=== PATIENT | female | born 2000 | race Caucasian/White ===

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

== ENCOUNTER 2022-07-04 20:28 | Emergency (ER) | payer BC ==
[~2022-07-04] VITALS: Ht 162.5 cm; Wt 90.7 kg
[2022-07-04] MEDS ORDERED: CIPR7.5D6 OT (20:59)
--- NOTE | 2022-07-04 20:59 | ED EENT ---
History of Present Illness General Chief Complaint: Ear Problems Stated Complaint: RIGHT EARACHE Nursing Triage Note: PT TO FT 2 WITH CC OF R EAR PAIN/ACHE THAT BEGAN 5 DAYS AGO. PT DENIES FEVER OR DRAINAGE. PT STATES TOOK 1000MG TYENOL 2HRS PRIOR TO ARRIVAL Source: patient Exam Limitations: no limitations (SENG GREGORY APRN) History of Present Illness Date Seen by Provider: Jul 04, 2022 Time Seen by Provider: 20:50 Initial Comments Patient is a 21-year-old female who presents to the emergency department with 5 days of right ear pain. She is currently . She took 1000 mg of Tylenol approximately 2 hours prior to arrival. She denies any fever, ear drainage, URI symptoms, swelling behind the ear, stiff neck. Denies any abdominal pain or vaginal bleeding/discharge. (SENG GREGORY APRN) Allergies and Home Medications Allergies Coded Allergies: No Known Drug Allergies (Unverified , 10/28/18) Patient Home Medication List Home Medication List Reviewed: Yes (SENG GREGORY APRN) Ciprofloxacin HCl/Dexameth (Ciproflox-Dexameth Otic Susp) 0.3 %-0.1 % Drops.susp, 4 DROPS OT BID Prescribed by: Seng Gregory on 07/04/222058 Review of Systems Review of Systems Constitutional: no symptoms reported Eyes: No Symptoms Reported Ears: See HPI, Pain Nose: no symptoms reported Mouth: no symptoms reported Throat: no symptoms reported Respiratory: no symptoms reported Cardiovascular: no symptoms reported Gastrointestinal: no symptoms reported Musculoskeletal: no symptoms reported Skin: no symptoms reported Neurological: No Symptoms Reported Hematologic/Lymphatic: No Symptoms Reported Immunological/Allergic: no symptoms reported (SENG GREGORY APRN) Past Gbopaoj-Idvbzx-Dynixs Hx Patient Social History Tobacco Use?: No Substance use?: No Alcohol Use?: No Pt feels they are or have been: No (SENG GREGORY APRN) Past Medical History Surgeries: Yes Adenoidectomy, Tonsillectomy Respiratory: No Cardiac: No Neurological: No Psychosocial: Yes Anxiety, Bipolar, Depression Integumentary: No (SENG GREGORY APRN) Physical Exam Vital Signs Vital Signs - First Documented 07/04/22 20:40 Temp 36.8 Pulse 93 Resp 18 B/P (MAP) 125/94 (104) Pulse Ox 97 O2 Delivery Room Air (ZHANE,LANDEN K DO) Height, Weight, BMI Height: 5'4.00" Weight: 155lbs. oz. 70.694468ef; 34.00 BMI Method:Stated General Appearance: WD/WN, no apparent distress Ears: right ear auricle normal, right ear TM normal, right ear swelling, right ear tenderness Neck: non-tender, full range of motion, supple, normal inspection (SENG GREGORY APRN) Progress/Results/Core Measures Results/Orders Vital Signs/I&O 07/04/22 07/04/22 20:40 21:03 Temp 36.8 Pulse 93 93 Resp 18 18 B/P (MAP) 125/94 (104) 125/94 Pulse Ox 97 97 O2 Delivery Room Air Room Air (LANDEN PHELAN DO) Blood Pressure Mean: 104 Progress Progress Note : Progress Note Patient is nontoxic and well-hydrated on exam. Otoscopy of the right ear is reassuring without any evidence of AOM. There is some mild swelling and erythema of the external canal. There is also provocation of pain with movement of the pinna of the ear as well as during the otoscopy itself. Likely represents some level of otitis externa. Will treat with Ciprodex. Literature states this is safe as there is very minimal systemic absorption. Vital signs are reassuring. No evidence of mastoiditis. Discussed importance of close follow-up with PCP. Return precautions for urgent symptomology discussed. Patient verbalized understanding. (SENG GREGORY APRN) Departure Impression Primary Impression: Right otitis externa Qualified Codes: H60.501 - Unspecified acute noninfective otitis externa, right ear Disposition: 01 HOME, SELF-CARE Condition: Stable Departure-Patient Inst. Decision time for Depature: 20:50 (SENG GREGORY APRN) Referrals: JUAN FOSTER DO (PCP/Family) Primary Care Physician Patient Instructions: Outer Ear Infection ED Scripts Ciprofloxacin HCl/Dexameth (Ciproflox-Dexameth Otic Susp) 0.3 %-0.1 % Drops.susp 4 DROPS OT BID for 7 Days, #7.5 ML Instill 4 drops into the right ear twice daily for 7 days Prov: SENG GREGORY APRN 07/04/22 ATTENDING PHYSICIAN NOTE: I WAS PHYSICALLY PRESENT ER PHYSICIAN, BUT I WAS NOT INVOLVED IN ANY DECISION MAKING OR ANY CARE OF THIS PATIENT, AND I AM NOT COLLABORATING PHYSICIAN. (LANDEN PHELAN DO) SENG GREGORY APRN Jul 04, 2022 20:59 LANDEN PHELAN DO Jul 05, 2022 01:39
[2022-07-04 21:03] VITALS: BP 125/94
== END 2022-07-04 21:03 | disposition home or self-care (01) ==
LOC: EDUNIT# 20:28 → ER 20:31
DX: O99.891 Other specified diseases and conditions complicating pregnancy (principal); H60.91 Unspecified otitis externa, right ear; Z28.311 Partially vaccinated for COVID-19; Z3A.00 Weeks of gestation of pregnancy not specified
CPT/HCPCS: 99282

== ENCOUNTER 2022-07-23 18:57 | Emergency (ER) | payer BC ==
[~2022-07-23] VITALS: Ht 162.6 cm; Wt 77.1 kg
[~2022-07-23 18:57] MED LIST changes: -CATHETER FLUSH 10 ML SYR IV PRN; +CIPR7.5D6 OT
[2022-07-23] MEDS ORDERED: PROCHLORPERAZINE 10 MG/2ML INJ (COMPAZINE) IV ONE (19:15)
[2022-07-23] MEDS ORDERED: LABETALOL 200 MG (NORMODYNE) TAB PO ONE (19:15)
[2022-07-23] MEDS ORDERED: ACETAMINOPHEN 500 MG TAB (TYLENOL) PO ONE (19:15)
[2022-07-23] MEDS ORDERED: diphenhydrAMINE 50 MG/ML INJ (BENADRYL) IVP ONE (19:15)
--- NOTE | 2022-07-23 19:19 | ED General ---
General Chief Complaint: (<6 weeks) Stated Complaint: HEADACHES, BLOOD PRESSURE ISSUES,POST PREECLAMPSIA Nursing Triage Note: PT AMB TO [facility] 6 W C/O HTN AND ARANDA. PT REPORTS SHE HAD A VAGINAL DELIVERY ON 07/11/22, INDUCED D/T HTN. PT REPORTS SHE CALLED [employer] [employer] AT [facility] WHO ADVISED PT TO COME TO ED FOR FURTHER EVALUATION AND TX. PT A&OX4. Source of Information: Patient Exam Limitations: No Limitations History of Present Illness Date Seen by Provider: Jul 23, 2022 Time Seen by Provider: 19:00 Initial Comments 21yoF that recently delivered a baby at 38 weeks 2 days roughly 12 days ago due to concerns for preeclampsia. She delivered via spontaneous vaginal delivery without complication. Has been doing well since then, vaginal bleeding has essentially stopped. Her and the baby have been doing well. Her blood pressure started to be elevated early on in , and to continue to monitor it, and later in , they noticed protein in her urine. When her pressure started elevating around 38 weeks they induced her for labor. She has never taken any blood pressure medicine. Blood pressures have been around 140/100 at home, she been taking ibuprofen 600 mg almost [id number] for headache. Denies any vision changes, abdominal pain, vaginal discharge that is unusual, dysuria, nausea, vomiting, diarrhea, fever, chills, weakness, numbness, rash, or any other concerns. She called her OB and they referred her to the ER to get lab work. She is otherwise denying any other acute complaints. Allergies and Home Medications Allergies Coded Allergies: Penicillins (Verified Allergy, Unknown, 07/23/22) Patient Home Medication List Home Medication List Reviewed: Yes Ciprofloxacin HCl/Dexameth (Ciproflox-Dexameth Otic Susp) 0.3 %-0.1 % Drops.susp, 4 DROPS OT BID Prescribed by: Seng Gregory on 07/04/222058 Review of Systems Review of Systems Constitutional: No fever EENTM: No blurred vision Respiratory: No cough Cardiovascular: No chest pain Gastrointestinal: No abdominal pain Genitourinary: no symptoms reported Musculoskeletal: no symptoms reported Skin: no symptoms reported Psychiatric/Neurological: Headache Hematologic/Lymphatic: No Symptoms Reported Immunological/Allergic: no symptoms reported All Other Systems Reviewed Negative Unless Noted: Yes Past Fqxislf-Zczbyw-Bhgdex Hx Patient Social History Tobacco Use?: No Use of E-Cig and/or Vaping dev: No Substance use?: No Alcohol Use?: No Immunizations Up To Date First/Initial COVID19 Vaccinat: 2020 Second COVID19 Vaccination Sam: 2020 Third COVID19 Vaccination Date: NONE COVID19 Vaccine Call Center Rn: MODERNA X2 Past Medical History Surgeries: Yes Adenoidectomy, Tonsillectomy Respiratory: No Cardiac: No Neurological: No Psychosocial: Yes Anxiety, Bipolar, Depression Integumentary: No Physical Exam Vital Signs Vital Signs - First Documented 07/23/22 19:03 Temp 36.5 Pulse 98 Resp 18 B/P (MAP) 141/100 (114) Pulse Ox 97 O2 Delivery Room Air Capillary Refill : Less Than 3 Seconds Height, Weight, BMI Height: 5'4.00" Weight: 155lbs. oz. 70.925681gq; 29.00 BMI Method:Stated General Appearance: No Apparent Distress, WD/WN Eyes: Bilateral Eye Normal Inspection, Bilateral Eye PERRL, Bilateral Eye EOMI HEENT: PERRL/EOMI, Normal ENT Inspection, Pharynx Normal Neck: Full Range of Motion, Normal Inspection, Non Tender, Supple Respiratory: Chest Non Tender, Lungs Clear, Normal Breath Sounds, No Accessory Muscle Use, No Respiratory Distress Cardiovascular: Regular Rate, Rhythm, No Edema, Normal Peripheral Pulses Gastrointestinal: Normal Bowel Sounds, Non Tender, Soft; No Distended, No Guarding Back: Normal Inspection, No CVA Tenderness Extremity: Normal Capillary Refill, Normal Inspection, Normal Range of Motion, Non Tender Neurologic/Psychiatric: Alert, Oriented x3, No Motor/Sensory Deficits, Normal Mood/Affect, Other (Normal gait) Skin: Normal Color, Warm/Dry Lymphatic: No Adenopathy Progress/Results/Core Measures Suspected Sepsis SIRS Temperature: Pulse: 98 Respiratory Rate: 18 Laboratory Tests 07/23/22 19:28: White Blood Count 11.4H Blood Pressure 141 /100 Mean: 114 Laboratory Tests 07/23/22 19:28: Creatinine 0.78, Platelet Count 521H Results/Orders Lab Results Laboratory Tests Test 07/23/22 19:21 07/23/22 19:28 Range/Units Urine Color YELLOW Urine Clarity CLEAR Urine pH 5.5 5-9 Urine Specific [place] 1.025 H 1.016-1.022 Urine Protein TRACE H NEGATIVE Urine Glucose (UA) NEGATIVE NEGATIVE Urine Ketones NEGATIVE NEGATIVE Urine Nitrite NEGATIVE NEGATIVE Urine Bilirubin NEGATIVE NEGATIVE Urine Urobilinogen 0.2 < = 1.0 MG/DL Urine Leukocyte Esterase 3+ H NEGATIVE Urine RBC (Auto) 3+ H NEGATIVE Urine RBC TNTC H /HPF Urine WBC 50-100 H /HPF Urine Squamous Epithelial Cells 2-5 /HPF Urine Crystals NONE /LPF Urine Bacteria FEW H /HPF Urine Casts NONE /LPF Urine Mucus SMALL H /LPF Urine Culture Indicated YES White Blood Count 11.4 H 4.3-11.0 10^3/uL Red Blood Count 4.21 3.80-5.11 10^6/uL Hemoglobin 11.4 L 11.5-16.0 g/dL Hematocrit 36 35-52 % Mean Corpuscular Volume 85 80-99 fL Mean Corpuscular Hemoglobin 27 25-34 pg Mean Corpuscular Hemoglobin Concent 32 32-36 g/dL Red Cell Distribution Width 14.6 H 10.0-14.5 % Platelet Count 521 H 130-400 10^3/uL Mean Platelet Volume 9.9 9.0-12.2 fL Immature Granulocyte % (Auto) 0 % Neutrophils (%) (Auto) 59 42-75 % Lymphocytes (%) (Auto) 31 12-44 % Monocytes (%) (Auto) 7 0-12 % Eosinophils (%) (Auto) 2 0-10 % Basophils (%) (Auto) 0 0-10 % Neutrophils # (Auto) 6.8 1.8-7.8 10^3/uL Lymphocytes # (Auto) 3.6 1.0-4.0 10^3/uL Monocytes # (Auto) 0.8 0.0-1.0 10^3/uL Eosinophils # (Auto) 0.2 0.0-0.3 10^3/uL Basophils # (Auto) 0.0 0.0-0.1 10^3/uL Immature Granulocyte # (Auto) 0.0 0.0-0.1 10^3/uL Sodium Level 141 135-145 MMOL/L Potassium Level 3.9 3.6-5.0 MMOL/L Chloride Level 113 H 98-107 MMOL/L Carbon Dioxide Level 18 L 21-32 MMOL/L Anion Gap 10 5-14 MMOL/L Blood Urea Nitrogen 14 7-18 MG/DL Creatinine 0.78 0.60-1.30 MG/DL Estimat Glomerular Filtration Rate 111 BUN/Creatinine Ratio 18 Glucose Level 86 70-105 MG/DL Uric Acid 4.6 2.6-7.2 MG/DL Calcium Level 9.4 8.5-10.1 MG/DL Corrected Calcium 9.6 8.5-10.1 MG/DL Magnesium Level 2.1 1.6-2.4 MG/DL Aspartate Amino Transf (AST/SGOT) 24 5-34 U/L Alanine Aminotransferase (ALT/SGPT) 29 0-55 U/L Alkaline Phosphatase 119 40-136 U/L Lactate Dehydrogenase 226 H 125-220 U/L Total Protein 6.9 6.4-8.2 GM/DL Albumin 3.7 3.2-4.5 GM/DL Lipase 19 8-78 U/L My Orders Orders - ADOLPH JACKSON MD Cbc With Automated Diff (07/23/22 19:11) Comprehensive Metabolic Panel (07/23/22 19:11) Lipase (07/23/22 19:11) Magnesium (07/23/22 19:11) Ua Culture If Indicated (07/23/22 19:11) LDH (07/23/22 19:11) Uric Acid (07/23/22 19:11) Labetalol Tablet (Normodyne Tablet) (07/23/22 19:15) Prochlorperazine Injection (Compazine In (07/23/22 19:15) Diphenhydramine Injection (Benadryl Inje (07/23/22 19:15) Acetaminophen Tablet (Tylenol Tablet) (07/23/22 19:15) Urine Culture (07/23/22 19:21) Medications Given in ED Current Medications Medications Dose Ordered Sig/Krish Route Start Time Stop Time Status Last Admin Dose Admin Acetaminophen 1,000 mg ONCE ONCE PO 07/23/22 19:15 07/23/22 19:17 DC 07/23/22 19:26 1,000 MG Diphenhydramine HCl 12.5 mg ONCE ONCE IVP 07/23/22 19:15 07/23/22 19:17 DC 07/23/22 19:28 12.5 MG Labetalol HCl 100 mg ONCE ONCE PO 07/23/22 19:15 07/23/22 19:17 DC 07/23/22 19:26 100 MG Prochlorperazine Edisylate 10 mg ONCE ONCE IV 07/23/22 19:15 07/23/22 19:17 DC 07/23/22 19:35 10 MG Vital Signs/I&O 07/23/22 19:03 Temp 36.5 Pulse 98 Resp 18 B/P (MAP) 141/100 (114) Pulse Ox 97 O2 Delivery Room Air Capillary Refill : Less Than 3 Seconds Blood Pressure Mean: 114 Progress Note : Progress Note 21-year-old female with above history coming in due to mild headache as well as elevated blood pressure in the setting of having a vaginal delivery roughly 12 days ago. Blood pressure is 140/100 on arrival. She was given 100 mg of p.o. labetalol. Neuro exam is normal with no focal deficits. She states she has had trace protein in her urine recently, and urinalysis today with trace of protein. She does have quite a bit of red blood cells given she just had a vaginal delivery. She is not having any dysuria or urinary frequency, so we will not treat her empirically for a UTI at this time, we will follow-up with the culture data. Given Compazine and Benadryl as well as Tylenol for her headache which she says almost immediately completely resolved her symptoms. Blood pressure trended down nicely and she is feeling well. Liver enzymes otherwise unremarkable, LDH just barely above normal which is unremarkable. No signs of HELLP syndrome, eclampsia, biliary stasis, or any other significant concerns. Abdominal exam reassuring. I believe she is stable for discharge with outpatient follow-up with her OB. She was sent home with strict return precautions. I told her to call her OB tomorrow to discuss if they want her to be on blood pressure medicines Departure Impression Primary Impression: Hypertension, condition or complication Additional Impression: Headache Qualified Codes: G44.209 - Tension-type headache, unspecified, not intractable Disposition: 01 HOME, SELF-CARE Condition: Improved Departure-Patient Inst. Decision time for Depature: 20:14 Referrals: JUAN FOSTER DO (PCP/Family) Primary Care Physician Patient Instructions: High Blood Pressure ED Add. Discharge Instructions: Please call your OB as soon as possible to see if they would like to place you on blood pressure medicine. If you do need ibuprofen for any type of pain, no that it can raise your blood pressure. Tylenol is typically a safer option. ADOLPH JACKSON MD Jul 23, 2022 19:19
[2022-07-23 19:25] LABS: BILIRUBIN,URINE NEGATIVE (NEGATIVE); CLARITY,URINE CLEAR; COLOR,URINE YELLOW; GLUCOSE, URINE (UA) NEGATIVE (NEGATIVE); KETONES,URINE NEGATIVE (NEGATIVE); LEUKOCYTE ESTERASE ,URINE 3+ (NEGATIVE); NITRITE,URINE NEGATIVE (NEGATIVE); PH,URINE 5.5 (5-9); PROTEIN,URINE TRACE (NEGATIVE)
[2022-07-23 19:42] LABS: BASOPHILS % (AUTO) 0 % (0-10); EOSINOPHILS # (AUTO) 0.2 10^3/uL (0.0-0.3); EOSINOPHILS % (AUTO) 2 % (0-10); HEMATOCRIT 36 % (35-52); HEMOGLOBIN 11.4 g/dL (11.5-16.0); LYMPHOCYTES # (AUTO) 3.6 10^3/uL (1.0-4.0); LYMPHOCYTES % (AUTO) 31 % (12-44); MEAN CORPUSCULAR HEMOGLOBIN 27 pg (25-34); MEAN CORPUSCULAR HGB CONC 32 g/dL (32-36); MEAN CORPUSCULAR VOLUME 85 fL (80-99); MEAN PLATELET VOLUME 9.9 fL (9.0-12.2); MONOCYTES # (AUTO) 0.8 10^3/uL (0.0-1.0); MONOCYTES % (AUTO) 7 % (0-12); NEUTROPHILS # (AUTO) 6.8 10^3/uL (1.8-7.8); NEUTROPHILS % (AUTO) 59 % (42-75); PLATELET COUNT 521 10^3/uL (130-400); WHITE BLOOD COUNT 11.4 10^3/uL (4.3-11.0)
[2022-07-23 19:43] LABS: BACTERIA,URINE FEW /HPF; RBC,URINE TNTC /HPF; WBC,URINE 50-100 /HPF
[2022-07-23 19:54] LABS: ALBUMIN 3.7 GM/DL (3.2-4.5); POTASSIUM 3.9 MMOL/L (3.6-5.0)
[2022-07-23 19:55] LABS: CALCIUM 9.4 MG/DL (8.5-10.1)
[2022-07-23 19:57] LABS: TOTAL PROTEIN 6.9 GM/DL (6.4-8.2)
[2022-07-23 20:00] LABS: CREATININE SERUM 0.78 MG/DL (0.60-1.30)
[2022-07-23 20:03] LABS: MAGNESIUM 2.1 MG/DL (1.6-2.4); URIC ACID 4.6 MG/DL (2.6-7.2)
[2022-07-23 20:16] LABS: BILIRUBIN,TOTAL 0.3 MG/DL (0.1-1.0)
[2022-07-23 20:24] VITALS: BP 135/90
== END 2022-07-23 20:24 | disposition home or self-care (01) ==
LOC: EDUNIT# 18:57 → ER 18:59
DX: O16.5 Unspecified maternal hypertension, complicating the puerperium (principal)
CPT/HCPCS: 36415; 80053; 81000; 83615; 83690; 83735; 84550; 85025; 87088; 99283